=== PATIENT | female | born 1965 | race Caucasian/White ===

== ENCOUNTER → 2016-12-02 | Outpatient (CLI) | payer OTHER ==
--- NOTE | 2016-12-03 14:31 | MM ---
Reason for exam: screening (asymptomatic). Last mammogram was performed 2 years and 1 month ago. History: Patient had first child at age 36. Physical Findings: A clinical breast exam by your physician is recommended on an annual basis and results should be correlated with mammographic findings. MG Screening Mammo w CAD Bilateral CC and MLO view(s) were taken. XCCL view(s) were taken of the left breast. Prior study comparison: November 13, 2014, bilateral MG screening mammo w CAD. January 06, 2012, bilateral digital screening mammo w/CAD. The breast tissue is heterogeneously dense. This may lower the sensitivity of mammography. No suspicious abnormality. No significant changes when compared with prior studies. ASSESSMENT: Negative, BI-RAD 1 RECOMMENDATION: Routine screening mammogram of both breasts in 1 year.
== END | disposition home or self-care (01) ==
LOC: RADMAMWWP 07:36
PROVIDERS: ATTEND Obstetrics & Gynecology
DX: Z12.31 Encounter for screening mammogram for malignant neoplasm of breast (principal)

== ENCOUNTER → 2018-05-03 | Outpatient (CLI) | payer BC ==
[2018-05-03 08:49] LABS: HCT 39.4 % (34.0-46.0); HGB 12.7 gm/dL (11.4-16.0); MCH 29.5 pg (25.0-35.0); MCHC 32.2 g/dL (31.0-37.0); MCV 91.5 fL (80.0-100.0); Mean Platelet Volume 7.1; Platelet Count 255 k/uL (150-450); RDW 13.3 % (11.5-15.5); WBC 6.2 k/uL (3.8-10.6)
[2018-05-03 17:19] LABS: ALT 15 U/L (8-44); AST 19 U/L (13-35); Albumin/Globulin Ratio 2.21 (1.60-3.17); Alkaline Phosphatase 91 U/L (41-126); Calcium 9.1 mg/dL (8.7-10.3); Carbon Dioxide 25.6 mmol/L (21.6-31.8); Chloride 107 mmol/L (96-109); Cholesterol 114 mg/dL (0-200); Globulin 1.9 g/dL (1.6-3.3); Glucose 107 mg/dL (70-110); Potassium 4.6 mmol/L (3.5-5.5); Sodium 139 mmol/L (135-145); Total Bilirubin 1.1 mg/dL (0.2-1.2); Total Protein 6.1 g/dL (6.2-8.2); Triglycerides <50.0 mg/dL (0.0-149.0); VLDL Calculation 9.98 mg/dL (5.00-40.00)
== END | disposition home or self-care (01) ==
LOC: LABWHC1 07:42
PROVIDERS: ATTEND Internal Medicine
DX: E87.8 Other disorders of electrolyte and fluid balance, not elsewhere classified (principal); E78.41 Elevated Lipoprotein(a); R53.83 Other fatigue
CPT/HCPCS: 36415; 80053; 80061; 84443; 85027

== ENCOUNTER → 2021-01-07 | Outpatient (CLI) | payer BC ==
--- NOTE | 2021-01-07 11:01 | CT ---
EXAMINATION TYPE: CT shoulder RT wo con DATE OF EXAM: 01/07/2021 COMPARISON: None. HISTORY: Primary Osteoarthritis Rt Shoulder. Bicipital tendinitis. CT DLP: 314.3 mGycm Automated exposure control for dose reduction was used. FINDINGS: Osseous structures are demineralized. The acromioclavicular joint shows mild narrowing posterior inferior aspect. No significant spurring i s seen. Distal acromion morphology unremarkable. There is moderate to advanced narrowing inferior glenohumeral joint. There is loss of normal spherica l shape to the right humeral head. There is extensive subchondral cystic change in the osseous glenoi d with some sclerosis most prominent inferiorly. There is large broad-based bony projection from the medial proximal humeral neck measuring 2.0 x 1.3 cm coronal image 74 x 3.5 cm AP diameter axial image 94. Subchondral cystic change in the superolateral aspect of the lateral head is present. Rotator cuff Muscle bulk fairly well maintained. Inferior to the subscapularis muscle along the perip heral aspect there is thin walled roughly 2.0 cm x 3.5 cm fluid collection anterior to the scapula se en best coronal image 49 likely extending from the superior aspect of the glenohumeral joint. Local m ass effect is present. Long head of biceps is seen within bicipital groove. Visualized right lung shows mild emphysematous change. Visualized ribs are intact. No axillary adenop athy is seen. IMPRESSION: As above. Fairly advanced glenohumeral joint arthropathy noted as detailed above.
== END | disposition home or self-care (01) ==
LOC: RADCTMAIN 10:06
PROVIDERS: ATTEND Orthopaedic Surgery
DX: M19.011 Primary osteoarthritis, right shoulder (principal)